=== PATIENT | male | born 1965 | race African-American/Black ===

== ENCOUNTER 2017-01-09 10:40 | Emergency (ER) | payer OTHER ==
--- NOTE | ~2017-01-09 | CR141 ---
[facility] A Service of [facility] & [facility] RADIOLOGY TEXT RESULTS PATIENT: JESSY PATIÑO LOCATION: [facility] : [birth year] UNIT #: [id number] AGE: [address]: Candace Morrissey MD SEX: M ORDER DR: [id number] [facility] [address] [place], [place] [address] [id number] E MR#: [id number] Acc #: [id number] NAME: JESSY PATIÑO : 1965 SEX: M STUDY DATE/TIME: 01/09/2017 10:28 UNIT: [facility] ROOM: STUDY DESCRIPTION: CR Hand Min 3 Views Lt Attending Physician: Candace Morrissey M.D. Ordering Physician: Candace Morrissey M.D. MEDICAL IMAGING REPORT This report is preliminary unless electronic signature is present EXAM Left hand 3 views 01/09/2017 HISTORY Left hand swelling and pain for 2 weeks no known injury. FINDINGS There is no fracture or bone destruction. There is a metallic density structure over the region of the head of the thumb metacarpal. It is not clear what it represents but it is about 5 mm in size and certainly could be a small glass fragment. IMPRESSION No fracture or bone destruction. Small 4-5 mm apparent foreign body in the region of the thumb metacarpal head and the thenar eminence. Certainly, it could represent a small glass fragment. Dictated by... Jack Guillermo M.D. THIS IS AN ELECTRONICALLY VERIFIED REPORT Jack Guillermo M.D. at 01/13/2017 7:06 PM TEV/pcl TD: 01/09/2017 16:47 JOB #: [id number] MEDICAL IMAGING REPORT COPY
== END 2017-01-09 10:54 | disposition home or self-care (01) ==
LOC: CED 10:40
DX: M25.542 Pain in joints of left hand (principal); F17.210 Nicotine dependence, cigarettes, uncomplicated
CPT/HCPCS: 73130; 99283

== ENCOUNTER 2017-02-02 14:40 | Emergency (ER) | payer OTHER ==
--- NOTE | ~2017-02-02 | CR230 ---
[facility] A Service of [facility] & [facility] RADIOLOGY TEXT RESULTS PATIENT: JESSY PATIÑO LOCATION: [facility] : 65 UNIT #: [id number] AGE: [address]: Malissa Ann APRN SEX: M ORDER DR: [id number] [facility] [address] [place], [place] [address] [id number] E MR#: [id number] Acc #: [id number] NAME: JESSY PATIÑO : 1965 SEX: M STUDY DATE/TIME: 02/02/2017 13:52 UNIT: [facility] ROOM: STUDY DESCRIPTION: CR Shoulder Min 2 View Rt Attending Physician: Malissa Ann A.P.R.N. Ordering Physician: All Bell M.D. Primary Care Physician: No Primary Care Physician MEDICAL IMAGING REPORT This report is preliminary unless electronic signature is present EXAM Right shoulder HISTORY Shoulder pain after repetitive trauma earlier today. TECHNIQUE 3 views of the shoulder were obtained. FINDINGS AP view with internal and external rotation of the shoulder girdle shows satisfactory relationship of the humeral head and glenoid fossa. The joint space is normal. There is no identifiable fracture or dislocation or bony destructive process about the shoulder girdle anatomy. The acromioclavicular joint is normal. There is no radiopaque foreign body in the region. IMPRESSION Normal shoulder. Dictated by... Milton Holm M.D. THIS IS AN ELECTRONICALLY VERIFIED REPORT Milton Holm M.D. at 02/03/2017 10:46 AM DIVYA/darren TD: 02/02/2017 17:51 JOB #: [id number] MEDICAL IMAGING REPORT Page 1 of 1 COPY
== END 2017-02-02 14:52 | disposition home or self-care (01) ==
LOC: CFTX 14:40
DX: S46.911A Strain of unspecified muscle, fascia and tendon at shoulder and upper arm level, right arm, initial encounter (principal); X58.XXXA Exposure to other specified factors, initial encounter; Y92.009 Unspecified place in unspecified non-institutional (private) residence as the place of occurrence of the external cause
CPT/HCPCS: 73030; 99283